=== PATIENT | female | born 1950 | race Caucasian/White ===

== ENCOUNTER 2019-07-06 16:36 | Emergency (ER) | payer MEDICARE ==
[~2019-07-06] VITALS: Ht 165.1 cm; Wt 70.0 kg
[2019-07-06] MEDS ORDERED: AUGMENTIN500TAB PO (16:56)
[2019-07-06] MEDS ORDERED: CORTISPORIN OTI10 ML AD (16:56)
[2019-07-06] MEDS ORDERED: HYDROCO/APAP1 TA9 PO (16:56)
[2019-07-06 17:10] VITALS: BP 138/77
== END 2019-07-06 17:10 | disposition home or self-care (01) ==
LOC: ED 16:36
DX: H60.92 Unspecified otitis externa, left ear (principal); H66.92 Otitis media, unspecified, left ear

== ENCOUNTER 2022-10-24 06:58 | Day surgery (SDC) | payer MEDICARE ==
[~2022-10-24] VITALS: Ht 165.1 cm; Wt 64.4 kg
[~2022-10-24 06:58] MED LIST: ACETAMINOPHEN PO; AUGMENTIN500TAB PO; CORTISPORIN OTI10 ML AD; D350 MCG PO; FEMARA2.5 M1 PO; HYDROCO/APAP1 TA9 PO; LEVOTHYROXIN50 MCG PO; PRAVASTATIN20 MG PO; TURMERIC500 M1 PO
[2022-10-24 09:59] VITALS: BP 129/69
== END 2022-10-24 09:40 | disposition home or self-care (01) ==
LOC: ORM 06:58
PROVIDERS: ATTEND Internal Medicine Gastroenterology
PROC: 0DBK8ZX Excision of Ascending Colon, Via Natural or Artificial Opening Endoscopic, Diagnostic (ICD-10-PCS; principal; 2022-10-24)
DX: D12.2 Benign neoplasm of ascending colon (principal); K57.30 Diverticulosis of large intestine without perforation or abscess without bleeding; K64.8 Other hemorrhoids